=== PATIENT | male | born 1950 | race Caucasian/White ===

== ENCOUNTER 2018-08-30 10:44 | Emergency (ER) | payer OTHER ==
[~2018-08-30] VITALS: Ht 170.2 cm; Wt 88.7 kg
[2018-08-30 11:10] VITALS: Ht 170.2 cm; Wt 88.7 kg
[2018-08-30 15:27] VITALS: BP 135/74
== END 2018-08-30 15:20 | disposition home or self-care (01) ==
LOC: ED 10:44
DX: G89.29 Other chronic pain (principal); M54.2 Cervicalgia; M54.6 Pain in thoracic spine; Z88.8 Allergy status to other drugs, medicaments and biological substances; Z98.890 Other specified postprocedural states
CPT/HCPCS: J1885

== ENCOUNTER 2019-03-23 11:04 | Inpatient (IN) | payer OTHER ==
[~2019-03-23] VITALS: Ht 170.2 cm; Wt 84.8 kg
[2019-03-23 11:10] VITALS: Ht 170.2 cm; Wt 84.8 kg
--- NOTE | 2019-03-23 11:10 | NUR ---
PT REPORTED THIS MORNING AROUND 1030 AM HE SUDDENTLY FELT DROWSY WHILE READING CHECKED HIS BP REPORTED 70/40 AT HOME. PT ASYMPTOMATIC AT THIS TIME SIMILAR EPISODE HAPPENED A COUPLE OF DAYS AGO PER PT. PT GOWNED ON FULL CROP ROLLER SINUS JACQUELINE NO DISTRESS, POSITION COMFORT. WILL CONTINUE TO MONITOR, WAITING FOR MD ORDER.
[2019-03-23 12:24] LABS: CALCIUM 9.5 mg/dL (8.5-10.1); CARBON DIOXIDE 30.8 mmol/L (21-32); CHLORIDE SERUM 107 mmol/L (98-107); GFR1 > 60 mL/min; GLUCOSE SERUM 93 mg/dL (74-106); POTASSIUM SERUM 4.3 mmol/L (3.5-5.1); SODIUM SERUM 144 mmol/L (136-145)
[2019-03-23 12:29] LABS: ALBUMIN 3.7 g/dL (3.4-5.0); ALKALINE PHOSPHATASE 49 U/L (46-116); ALT/SGPT 24 U/L (16-63); AST/SGOT 16 U/L (15-37); BILIRUBIN TOTAL 1.3 mg/dL (0.20-1.00); TOTAL PROTEIN, SERUM 6.4 g/dL (6.4-8.2)
[2019-03-23 12:49] LABS: BASOPHIL % 0.6 % (0-2); PLATELET COUNT 164 x10^3mcL (130-400); RED CELL DISTRIBUTION WIDTH 13.6 % (11.5-14.5); T3 TOTAL 0.93 ng/mL
[2019-03-23 12:58] LABS: FREE T4 0.92 ng/dL (0.76-1.46); FREE THYROXINE INDEX 2.3 ug/dL (1.4-4.5)
--- NOTE | 2019-03-23 13:00 | NUR ---
PT RESTING IN BED COMFORTABLY NO DISTRESS VSS AT THIS TIME. SINUS JACQUELINE ON CM, AT BEDSIDE CALL LIGHT IN REACH. WILL CONTINUE TO MONITOR
[2019-03-23] MEDS ORDERED: MELOXICAM15 M1 PO (13:17)
[2019-03-23] MEDS ORDERED: ZANAFLEX CAPSULE4 MG PO (13:17)
[2019-03-23] MEDS ORDERED: DSS100 MG PO (13:20)
[2019-03-23] MEDS ORDERED: CBD TINCTURE (13:20)
[2019-03-23] MEDS ORDERED: CENTRUM SILVER1 EAC4 PO (13:20)
[2019-03-23] MEDS ORDERED: TUMERIC CURCUMIN PO (13:21)
[2019-03-23] MEDS ORDERED: OMEGA 3 FISH O1 EACH PO (13:22)
[2019-03-23] MEDS ORDERED: CRANBERRY PLUS1 EAC1 PO (13:22)
[2019-03-23] MEDS ORDERED: GLUCOSAMINE & C1 CA3 PO (13:23)
--- NOTE | 2019-03-23 14:00 | NUR ---
PT OOB TO BATHROOM AMBULATORY WITH STEADY GAIT.
--- NOTE | 2019-03-23 14:10 | NUR ---
PT BACK TO BATHROOM WITH NO INCIDENT
--- NOTE | 2019-03-23 14:45 | NUR ---
REPORT GIVEN TO LORIE RN IN TELE FLOOR
--- NOTE | 2019-03-23 14:55 | NUR ---
PT TO TELE FLOOR VIA [facility] NO DISTRESS VSS IV SITE SALINE LOCK INTACT. ACCOMPANIED PT. PT ON FULL PORTABLE CM THI RN RESUMING CARE OF PT
--- NOTE | 2019-03-23 14:56 | NUR ---
RECEIVED PT FROM ER, PT ADMIT FOR SYNCOPE, BRADYCARDIA, PT IS A/O X4, VERBAL RESPONSIVE, DENY ANY CHEST PAIN OR DISCOMFORT, LUNG SOUND CLEAR BILATERAL, NO COUGH, NO SOB, PT IS ON TELE 2, SBR, HR 44, DENY ANY CHEST PAIN OR DISCOMFORT, BOWEL SOUND PRESENT ALL 4 QUADRANTS,NO DISTENTION, NO TENDER. PEDAL PULSE PRESENT BOTH FEET, NO EDEMA, IV AT LEFT AC, NO LEAKING, NO INFILTRATION. ALL ADLS ASSIST,A LL NEED MET, CALL LIGHT IN REACH, WILL COTNINUE TO [facility].
[2019-03-23 15:13] VITALS: BP 118/66
[2019-03-23 15:23] LABS: CHOLESTEROL/HDL RATIO 3.5; MAGNESIUM 2.1 mg/dL (1.8-2.4); PHOSPHOROUS 3.5 mg/dL (2.5-4.9)
--- NOTE | 2019-03-23 15:41 | NUR ---
PT SEEN AND DISCUSS POC W/ DR. SERRATO AT BEDSIDE, AT BEDSIDE, QUESTIONS ASKED AND ANSWERED, VERBALLY UNDERSTANDING, SAFETY MONITOR, PT IN NO ACUTE RESP DISTRESS IN BED, ALL NEEDS MET AT THIS TIME, CONTINUE TO MONITOR
--- NOTE | 2019-03-23 15:43 | NUR ---
FALL RISK ARMBAND PUT ON TO L ARM, PT AWARE TO CALL FOR HELP WHEN OPP OR BRP, VERBALLY UNDERSTANDING, CONTINUE TO MONITOR
--- NOTE | 2019-03-23 16:30 | NUR ---
SIX COLOR PRESS OPERATOR REPORTED JACQUELNIE EPISODE, PT SEEN BY DR. CONLEY EGG FACTORY WORKER, PER PT, SYMMTOMATIC JACQUELINE, HR AT 40-50'S, DR CONLEY AWARE, PT DENIED DIZZINESS, ALL NEEDS MET AT THIS TIME, CONTINUE TO MONITOR
--- NOTE | 2019-03-23 17:18 | NUR ---
CT LAB CALLED AND DELAYED CT SCAN TO PT D/T EMERGENCY, SAID WILL PICK PT AFTER 30 MINS, PT AWARE, AT BEDSIDE, ALL NEEDS MET AT THIS TIME, CONTINUE TO MONITOR
[2019-03-23 18:02] LABS: IRON 107 ug/dL (65-170)
[2019-03-23 18:04] LABS: TOTAL IRON BINDING CAPACITY 242 ug/dL (250-450)
[2019-03-23 18:13] LABS: RED BLOOD CELLS 3.82 M/mm3 (4.52-5.90)
--- NOTE | 2019-03-23 18:14 | NUR ---
PT IN BED, AXOX4, AND FAMILY MEMBER AT BEDSIDE, IN NO ACUTE RESP DISTRESS, RA, VERBAL, ABLE TO MOVE ALL EXTREMITIES W/ MINIMAL RESISTANT D/T HX OF MULTIPLE SURGERIES AND (R) HIP REPLACEMENT, KITCHEN AWARE OF NEW ADMIT AND WILL DELIVER LATE DINNER TO PT, TUNA SANDWICH GIVEN PER PT REQUEST, ALL NEEDS MET AT THIS TIME, FALL RISK, DENIED CP/PAIN/DISCOMFORT, DENIED N/V/D/DIZZINESS, SAFETY PROCOTOL FOLLOWED, WILL ENDORSE TO ONCOMING RN
--- NOTE | 2019-03-23 20:34 | NUR ---
CAROTID U/S COMPLETED, PT TAKEN DOWN FOR CT OF THE HEAD, TRANSPORTED BY W/C.
--- NOTE | 2019-03-23 20:50 | NUR ---
PT CAME BACK FROM CT SCAN, LOLITA THE PROCEDURE WELL, FACILITATED TO BED, HOOKED BACK IVF ORDERED, SCD'S APPLIED FOR DVT PROPHYLAXIS, PT AAO X4 VERBAL AMBULATORY NO C/O DIZZINESS AT THIS TIME, NO DISTRESS LUNGS CTA, TELE # 2 HR @ 4O'S NO CP OR PRESSURE, ASYMPTOMATIC, VOIDS BUT HAS EPISODES OF INCONTINENCE PER PT, HE JUST HAVE PROSTATE SURGERY WEEKS AGO, NO HEMATURIA, SHIFT ASSESSMENT DONE, ATTENDED NEEDS, CALL LIGHT AT REACH, CONT TO MONITOR.
[2019-03-23 22:14] VITALS: BP 109/50
--- NOTE | 2019-03-24 01:49 | NUR ---
PT ASLEEP, NO S/SX OF PAIN SB IN THE MONITOR HR @ 50'S NO CP OR PRESSURE, IVF INFUSING NS @ 100CC/HR, CALL LIGHT AT REACH, CONT TO MONITOR.
[2019-03-24 05:19] VITALS: BP 134/59
--- NOTE | 2019-03-24 06:23 | NUR ---
AWAKE AMBULATES TO THE BATHROOM DENIES DIZZINESS NOR HEADACHE, CLAIMED HAVING CHRONIC BACK PAIN REFUSED PAIN MEDS OFFERED STATED THAT IT'S ONLY POSITIONING, NO DISTRESS SB IN THE MONITOR HR 40'S TO 50'S NO CP OR PRESSURE, WILL ENDORSE TO INCOMING SHIFT FOR F/U CARE.
[2019-03-24 06:31] LABS: BASOPHIL % 0.7 % (0-2); PLATELET COUNT 142 x10^3mcL (130-400); RED CELL DISTRIBUTION WIDTH 13.5 % (11.5-14.5)
[2019-03-24 06:50] LABS: CALCIUM 9.1 mg/dL (8.5-10.1); CARBON DIOXIDE 22.5 mmol/L (21-32); CHLORIDE SERUM 111 mmol/L (98-107); CREATININE SERUM 0.8 mg/dL (0.7-1.3); GFR1 > 60 mL/min; GLUCOSE SERUM 113 mg/dL (74-106); MAGNESIUM 2.1 mg/dL (1.8-2.4); PHOSPHOROUS 3.9 mg/dL (2.5-4.9); SODIUM SERUM 144 mmol/L (136-145)
--- NOTE | 2019-03-24 07:15 | NUR ---
RECIEVED PT FROM NIGHT NURSE. PT IS WALKING FROM BATHROOM BACK TO BED. PT LOOKS STEADY ON FEET AND DENIES ANY DIZZINESS OR PAIN. PT LOOKS TO BE IN NO ACUTE DISTRESS AT THIS TIME. RESPIRATIONS EVEN AND UNLABORED ON ROOM AIR. TELE MONITOR 2 PRESENT. IV SITE PATENT WITH NO SIGNS OF ERYTHEMA OR SWELLING WITH IV FLUIDS INFUSING. PT COMPLAINING THAT NOTICING AN INCREASE IN YAWNING BEFORE IN THE HOSPITAL AND WHILE IN THE HOSPITAL, WILL NOTIFY DR. BOB IN LOWEST POSITION, CALL LIGHT WITHIN REACH. WILL CONTINUE TO MONITOR
[2019-03-24 08:29] VITALS: BP 128/64
--- NOTE | 2019-03-24 09:30 | NUR ---
DC FLUIDS ORDERED
--- NOTE | 2019-03-24 10:30 | NUR ---
PATIENT HEART RATE IN THE LOW 40S. PT IS LAYING DOWN IN BED AND STATED WAS READING A BOOK WHEN HIS EYES STARTED BURNING AND STINGING. PT THEN LAID DOWN. PT IS ASYTOMATIC AT THIS TIME. PT STATED THAT HE DID NOT GET MUCH SLEEP THE NIGHT BEFORE AND THINKS THAT IS WHAT THE BURNING EYES IS STEMING FROM. WILL NOTIFY DR. CONLEY.
[2019-03-24 10:34] LABS: microscopic required? NO
[2019-03-24 11:16] LABS: AMPHETAMINE QUAL UR NONE DETECTED (See below)
--- NOTE | 2019-03-24 11:31 | NUR ---
PT HEARTRATE TRENDING IN THE LOW 40S. CHECKED RADIAL PULSE AT BEDSIDE TO VERIFY. PT IS ASYMPTOMATIC AT THIS TIME. CALL LIGHT WITHIN REACH, FAMILY MEMBER AT BEDSIDE. WILL CONINTU EO MONITOR.
--- NOTE | 2019-03-24 11:55 | NUR ---
INFORMED DR. CONLEY OF PATIENT'S LOW HEART RATE
[2019-03-24 11:57] LABS: urine erythrocyte NEGATIVE (NEGATIVE)
[2019-03-24 12:07] VITALS: BP 121/59
[2019-03-24] MEDS ORDERED: PROA PO (15:02)
[2019-03-24 16:16] VITALS: BP 121/59
--- NOTE | 2019-03-24 17:18 | NUR ---
PT AWAKE, ALERT AND ORIENTED AT TIME OF DISCHARGE AND DENIES ANY PAIN. PT DISCHARGED HOME AND WALKED TO [facility] ACCOMPANIED BY NURSE AND FAMILY MEMBER WITH BELONGINGS IN HAND. EDUCATION AND PRESCIPTION PROVIDED TO PT. PT AND FAMILY MEMBER VERBALIZED UNDERSTANDING OF INFORMATION. NO FOLLOW UP APPOINTMENT. INFORMED PT OF THE IMPORTANCE TO SET UP A FOLLOW UP APPOINTMENT WTIHIN 1 WEEK OF DISCHARGE, PT AND FAMILY MEMBER VERBALIZED UNDERSTANDING OF INFORMATION. IV REMOVED AND CATHETER FULLY INTACT. TELE MONITOR REMOVED AND RETURNED TO TELE STATION. ALL QUESTIONS AND CONCERNS ADDRESSED.
== END 2019-03-24 17:11 | disposition home or self-care (01) | DRG 74 ==
LOC: ED 11:04 → DU 14:16
PROVIDERS: Emergency Medicine; ADMIT General Practice
DX: G90.8 Other disorders of autonomic nervous system (principal); E86.0 Dehydration; R00.1 Bradycardia, unspecified; C61 Malignant neoplasm of prostate; I95.9 Hypotension, unspecified; D64.9 Anemia, unspecified; E78.00 Pure hypercholesterolemia, unspecified; G89.29 Other chronic pain; M54.5 Low back pain; Z96.641 Presence of right artificial hip joint; Z68.27 Body mass index [BMI] 27.0-27.9, adult; Z87.891 Personal history of nicotine dependence; Z85.820 Personal history of malignant melanoma of skin
CPT/HCPCS: 83880; 84439; G0378; J7030; Q0092